=== PATIENT | female | born 1980 | race Caucasian/White ===

== ENCOUNTER 2021-04-19 06:29 | Inpatient (IN) ==
[2021-04-19] MEDS ORDERED: CeFAZolin Syr 2,000MG/20 ML 2,000 MG/20 ML SYRINGE IVPB ONE (06:41)
[2021-04-19] MEDS ORDERED: Ringers Solution, Lactated 1,000 ML IVC SCH (06:45)
[2021-04-19] MEDS ORDERED: *HR* Rocuronium Bromide 50 MG/5 ML VIAL ONE ×2 (06:48→08:40)
[2021-04-19] MEDS ORDERED: *HR* Succinylcholine 200 MG/10 ML VIAL IVP ONE (06:48)
[2021-04-19] MEDS ORDERED: Lidocaine -MPF 2% 5 ML VIAL ONE (06:48)
[2021-04-19] MEDS ORDERED: *HR* Propofol 200 MG/20 ML VIAL IVP ONE (06:50)
[2021-04-19] MEDS ORDERED: *HR* Midazolam HCl 5 MG/5 ML VIAL IVP ONE (06:50)
[2021-04-19] MEDS ORDERED: *HR* Midazolam HCl 2 MG/2 ML VIAL ONE (06:50)
[2021-04-19] MEDS ORDERED: *HR* FentaNYL (PF) 100 MCG/2 ML VIAL ONE (06:50)
[2021-04-19] MEDS ORDERED: Ondansetron 4 MG/2 ML VIAL IVP PRN ×3 (07:06→12:15)
[2021-04-19] MEDS ORDERED: *HR* OxyCODONE Immed Rel 5 MG TABLET PO PRN (07:06)
[2021-04-19] MEDS ORDERED: *HR* Morphine Sulfate/PF 10 MG/10 ML AMPUL ONE (07:07)
[2021-04-19] MEDS ORDERED: *HR* Belladonna Alkaloids/Opium 30 MG RECTAL SUPPOSITORY RC ONE (07:09)
[2021-04-19] MEDS ORDERED: Acetaminophen IV 1,000 MG/100 ML BAG IVPB ONE (07:14)
[2021-04-19] MEDS ORDERED: Ondansetron 4 MG/2 ML VIAL ONE (08:02)
[2021-04-19] MEDS ORDERED: EPHEDrine 50 MG/ML VIAL ONE (08:35)
[2021-04-19] MEDS ORDERED: Ketorolac 30 MG/ML VIAL ONE (09:35)
[2021-04-19] MEDS ORDERED: *HR* HYDROcodone/Acet 5/325 mg TABLET PO PRN (10:06)
[2021-04-19] MEDS ORDERED: Naloxone 0.4 MG/ML INJ IVP PRN ×2 (10:06→12:11)
[2021-04-19] MEDS ORDERED: *HR* OxyCODONE/APAP 5/325 TABLET PO PRN ×2 (10:06→12:12)
[2021-04-19] MEDS ORDERED: Sennosides 8.6 MG TABLET PO PRN ×2 (10:06→12:13)
[2021-04-19] MEDS: *HR* HYDROmorphone PF 0.5 MG/0.5 ML SYRINGE IVP PRN ×2 (10:18→10:26)
[2021-04-19] MEDS ORDERED: Ibuprofen 600 MG TABLET PO SCH (12:00)
[2021-04-19] MEDS: *HR* HYDROcodone/Acet 5/325 mg TABLET PO PRN (12:16)
[2021-04-19] MEDS ORDERED: *HR* HYDROmorphone (PF) 1 MG/ML SYRINGE IVP PRN (15:04)
[2021-04-19] MEDS: Ibuprofen 600 MG TABLET PO SCH ×2 (17:19→23:03)
[2021-04-20] MEDS: Ibuprofen 600 MG TABLET PO SCH (05:12)
[2021-04-20] MEDS: *HR* HYDROcodone/Acet 5/325 mg TABLET PO PRN (05:31)
[2021-04-20 07:30] VITALS: BP 109/65; PULSE 67; TEMP 98; O2SAT 96
[2021-04-20 11:16] LABS: Hematocrit 36.2 % (35.3-44.9); Mean Corpuscular HGB Conc 33.1 g/dL (31.6-35.5); Mean Corpuscular Hemoglobin 30.7 pg (28.0-33.3); Mean Corpuscular Volume 92.6 fL (83.0-100.0); Mean Platelet Volume 9.8 fL (9.4-12.4); Platelet Count 371 K/mcL (140-400); Red Blood Count 3.91 M/mcL (3.82-4.97); Red Cell Distribution Width 13.3 % (11.5-14.5)
== END 2021-04-20 11:10 | disposition home or self-care (01) | DRG 743 ==
LOC: SAMDAY 06:29 → 1NENUOBS 10:57
PROVIDERS: ADMIT Obstetrics & Gynecology; ATTEND Obstetrics & Gynecology